=== PATIENT | male | born 1985 | race Caucasian/White ===

== ENCOUNTER 2021-01-29 20:52 | Emergency (ER) | payer BC ==
[~2021-01-29] VITALS: Ht 172.7 cm; Wt 79.4 kg
[~2021-01-29 20:52] MED LIST: BACTROBAN22 GM TP; FLONASE 0.05%50 MCG NASAL; IBUPROFEN 600600 M1 PO; NAPROSYN500 MG PO; NOHOMEMEDICATIONS; TOBRAMYCIN SULFA5 ML OP; ZPAK PO
[2021-01-29] MEDS ORDERED: MEDROLDOSEPACK PO (21:16)
[2021-01-29 21:48] VITALS: BP 106/70
== END 2021-01-29 21:49 | disposition home or self-care (01) ==
LOC: ER 20:52
DX: G56.31 Lesion of radial nerve, right upper limb (principal)